=== PATIENT | female | born 1960 | race American Indian/Alaskan Native ===

== ENCOUNTER 2017-02-11 13:45 | Emergency (ER) | payer BC ==
[2017-02-11 14:05] VITALS: RESP 18; TEMP 98.4; O2SAT 97; BMI 27.1
--- NOTE | 2017-02-11 14:12 | ED PDOC ---
Arrival/HPI - General Time Seen by Provider: 02/11/17 13:56 Historian: Patient - History of Present Illness Narrative History of Present Illness (Text): 02/11/17 14:09 57yo female who present with complaint of lower back pain that radiates to her lower extremities after a trauma 2weeks ago. States she fell down 14stairs on her back. Came to ED today because of the persistent pain. Pain is constant, but worse with with movement after a prolong sitting. Did not take any medication for pain. Also reports suprapubic abdominal pain, urinary frequency and dysuria x 2weeks. States she saw her TEST BORER HELPER for the urinary symptoms and was given a cream, which she finished without relieve. Denies fever, chills, nausea , vomiting, focal weakness, saddle anesthesia, urinary/fecal incontinence. Past Medical History - Provider Review Nursing Documentation Reviewed: Yes - Past History Past History: Non-Contributing - Infectious Disease Hx of Infectious Diseases: None - Tetanus Immunization Tetanus Immunization: Unknown - Past Medical History Past Medical History: Non-Contributing - Cardiac Hx Cardiac Disorders: Yes Hx Hypertension: Yes - Pulmonary Hx Respiratory Disorders: No - Neurological Hx Neurological Disorder: No Hx Paralysis: No - HEENT Hx HEENT Disorder: No - Renal Hx Renal Disorder: No - Endocrine/Metabolic Hx Endocrine Disorders: No - Hematological/Oncological Hx Blood Disorders: No Hx Blood Transfusions: No Hx Blood Transfusion Reaction: No - Integumentary Hx Dermatological Disorder: No - Musculoskeletal/Rheumatological Hx Musculoskeletal Disorders: No - Gastrointestinal Hx Gastrointestinal Disorders: Yes Hx Constipation: Yes Hx Gastroesophageal Reflux: Yes - Genitourinary/Gynecological Hx Genitourinary Disorders: No - Psychiatric Hx Psychophysiologic Disorder: No Hx Substance Use: No - Past Surgical History Past Surgical History: Non-Contributing - Surgical History Hx Tubal Ligation: Yes - Anesthesia Hx Anesthesia: Yes Hx Anesthesia Reactions: No Hx Malignant Hyperthermia: No - Suicidal Assessment Feels Threatened In Home Enviroment: No Family/Social History - Physician Review Nursing Documentation Reviewed: Yes Family/Social History: Unknown Family HX Smoking Status: Never Smoked Hx Alcohol Use: No Hx Substance Use: No Hx Substance Use Treatment: No Allergies/Home Meds Allergies/Adverse Reactions: Allergies EGG Allergy (Verified 10/07/16 16:22) ITCHING peas Allergy (Verified 10/07/16 16:22) ITCHING Penicillins Allergy (Verified 10/07/16 16:22) ITCHING potato Allergy (Verified 10/07/16 16:22) ITCHING shellfish derived Allergy (Verified 10/07/16 16:22) ITCHING seafood Allergy (Uncoded 10/07/16 16:22) ITCHING Review of Systems - Physician Review All systems were reviewed & negative as marked: Yes - Review of Systems Constitutional: Normal Eyes: Normal ENT: Normal Respiratory: Normal Cardiovascular: Normal Gastrointestinal: Normal Genitourinary Female: Dysuria, Frequency Musculoskeletal: Back Pain Skin: Normal Neurological: Normal Endocrine: Normal Hemo/Lymphatic: Normal Psychiatric: Normal Physical Exam Vital Signs Reviewed: Yes Vital Signs Temp Pulse Resp BP Pulse Ox 02/11/17 15:22 78 18 138/68 97 02/11/17 14:05 98.4 F 81 18 142/71 97 Temperature: Afebrile Blood Pressure: Normal Pulse: Regular Respiratory Rate: Normal Appearance: Positive for: Well-Appearing, Non-Toxic, Comfortable Pain Distress: None Mental Status: Positive for: Alert and Oriented X 3 - Systems Exam Head: Present: Atraumatic, Normocephalic Pupils: Present: PERRL Extroacular Muscles: Present: EOMI Conjunctiva: Present: Normal Mouth: Present: Moist Mucous Membranes Neck: Present: Normal Range of Motion Respiratory/Chest: Present: Clear to Auscultation, Good Air Exchange. No: Respiratory Distress, Accessory Muscle Use Cardiovascular: Present: Regular Rate and Rhythm, Normal S1, S2. No: Murmurs Abdomen: Present: Tenderness (Suprapubic tenderness), Normal Bowel Sounds, Other (Soft). No: Distention, Peritoneal Signs, Rebound, Guarding, McBurney's Point Tender, Rovsing's Sign Present Back: Present: Midline Tenderness. No: Paraspinal Tenderness, Pain with Leg Raise Upper Extremity: Present: Normal Inspection. No: Cyanosis, Edema Lower Extremity: Present: Normal Inspection. No: Edema Neurological: Present: GCS=15, CN II-XII Intact, Speech Normal Skin: Present: Warm, Dry, Normal Color. No: Rashes Psychiatric: Present: Alert, Oriented x 3, Normal Insight, Normal Concentration Medical Decision Making ED Course and Treatment: 02/11/17 16:03 Pt was ambulatory and neurological intact in ED. Her pain improved on re evaluation. She have UTI and was treated with macrobid LS xray No acute finding. Arthorses of LS noted Result was DW the pt. she was referred to her PMD/TEST BORER HELPER. Rx of Naprosyn and macrobid given. Muscle relaxer not given at this time, as pt developed itching in ED after taking muscle relaxer. she is allergic to peas and it has correlation with muscle relaxer. - Lab Interpretations Lab Results: Lab Results 02/11/17 14:26: Urine Color Yellow, Urine Appearance Clear, Urine pH 6.5, Ur Specific [employer] 1.015, Urine Protein Negative, Urine Glucose (UA) Negative, Urine Ketones Negative, Urine Blood Negative, Urine Nitrate Negative, Urine Bilirubin Negative, Urine Urobilinogen 0.2, Ur Leukocyte Esterase Moderate H, Urine RBC Negative, Urine WBC 1 - 3, Ur Epithelial Cells Many, Urine Bacteria Small - RAD Interpretation Radiology Orders: 02/11/17 14:08 LS SPINE WITH OBL > 18 YRS OLD [RAD] Stat - Medication Orders Current Medication Orders: Discontinued Medications Diazepam (Valium) 5 mg PO ONCE ONE PRN Reason: Protocol Stop: 02/11/17 14:29 Last Admin: 02/11/17 14:44 Dose: 5 mg Diphenhydramine HCl (Benadryl) 25 mg PO STAT STA Stop: 02/11/17 15:41 Last Admin: 02/11/17 15:52 Dose: 25 mg Ketorolac Tromethamine (Toradol) 60 mg IM STAT STA Stop: 02/11/17 14:29 Last Admin: 02/11/17 14:46 Dose: 60 mg Nitrofurantoin Macrocrystals (Macrobid) 100 mg PO ONCE STA Stop: 02/11/17 14:43 Last Admin: 02/11/17 15:52 Dose: 100 mg Disposition/Present on Arrival - Present on Arrival Any Indicators Present on Arrival: No History of DVT/PE: No History of Uncontrolled Diabetes: No Urinary Catheter: No History Surgical Site Infection Following: None - Disposition Have Diagnosis and Disposition been Completed?: Yes Diagnosis: Back pain, UTI (urinary tract infection) Disposition: HOME/ ROUTINE Disposition Time: 15:35 Patient Plan: Discharge Patient Problems: Current Active Problems Problem Status Onset Back pain Acute UTI (urinary tract infection) Acute Condition: STABLE Discharge Instructions (ExitCare): Urinary Tract Infection in Women (ED), Back Pain (ED) Additional Instructions: Take medication as directed Follow up with your Doct0r/TEST BORER HELPER Return to ED for any new or worsening symptoms Prescriptions: Naproxen [Naprosyn] 500 mg PO BID #20 tablet Nitrofurantoin Macrocrystals [Macrobid] 100 mg PO BID #14 cap Referrals: Mark Serrano DO [Primary Care Provider] - Follow up with primary
[2017-02-11 14:29] LABS: PH,URINE 6.5 (4.7-8.0); URINE BILIRUBIN NEGATIVE (NEGATIVE); URINE BLOOD NEGATIVE (NEGATIVE); URINE GLUCOSE (UA) NEGATIVE (NEGATIVE); URINE KETONE NEGATIVE (NEGATIVE); URINE LEUKOCYTE ESTERASE MODERATE Leu/uL (NEGATIVE); URINE PROTEIN NEGATIVE mg/dL (<30 mg/dL); URINE UROBILINOGEN 0.2 E.U./dL (<1 E.U./dL)
[2017-02-11 14:32] LABS: URINE APPEARANCE CLEAR (CLEAR); URINE COLOR YELLOW (YELLOW)
[2017-02-11 14:43] LABS: URINE BACTERIA SMALL (NEG); URINE EPITHELIAL CELLS MANY /hpf (0-5); URINE RBC NEGATIVE /hpf (0-2)
[2017-02-11 15:22] VITALS: BP 138/68; PULSE 78
--- NOTE | 2017-02-11 15:29 | RAD ---
PROCEDURE: Radiographs of the Lumbar Spine. HISTORY: back pain s/p trauma COMPARISON: No prior. FINDINGS: BONES: Normal alignment. No listhesis. No fracture. DISC SPACES: Unremarkable. OTHER FINDINGS: L4-5 and L5-S1 facet hypertrophy arthrosis IMPRESSION: No fracture or gross subluxation suggested. Bilateral facet hypertrophic arthrosis
[2017-02-11] MEDS ORDERED: DiphenhydrAMINE 12.5 mg/5 ml LIQ UD (5 ml) PO STA (15:40)
== END 2017-02-11 16:05 | disposition home or self-care (01) ==
LOC: ED 13:45
DX: N39.0 Urinary tract infection, site not specified (principal); M54.5 Low back pain
CPT/HCPCS: 72110; 81001; 96372; 99283; J1885

== ENCOUNTER 2017-02-18 12:56 | Emergency (ER) | payer BC ==
[2017-02-18 12:57] VITALS: BMI 27.1
[2017-02-18 14:02] LABS: URINE BILIRUBIN NEGATIVE (NEGATIVE); URINE BLOOD NEGATIVE (NEGATIVE); URINE GLUCOSE (UA) NEGATIVE (NEGATIVE); URINE LEUKOCYTE ESTERASE SMALL Leu/uL (NEGATIVE); URINE NITRATE NEGATIVE (NEGATIVE); URINE PROTEIN NEGATIVE mg/dL (<30 mg/dL); URINE UROBILINOGEN 0.2 E.U./dL (<1 E.U./dL)
[2017-02-18 14:07] LABS: URINE APPEARANCE SL CLOUDY (CLEAR); URINE COLOR YELLOW (YELLOW)
[2017-02-18 14:10] LABS: URINE BACTERIA FEW (NEG); URINE RBC 0 - 2 /hpf (0-2)
--- NOTE | 2017-02-18 14:15 | ED PDOC ---
Arrival/HPI - General Historian: Patient - History of Present Illness Time/Duration: < week Symptom Course: Improving - General Chief Complaint: Female Genitourinary Time Seen by Provider: 02/18/17 13:25 - History of Present Illness Narrative History of Present Illness (Text): 02/18/17 13:54 57 year old female with past medical history of hypertension presents to [facility] ED complaining of abdominal pain. The pain is located at bilateral lower abdominal region. She reports the pain started 4 days ago, non radiating, tightness in quality. The pain is intermittent, it is worse with palpation and improves with naproxen. Patient was here in the ED 1 week ago for the similar abdominal pain and dysuria. Patient was discharged with naproxen and macrobid. She is finishing up her 5 day course of macrobid today and denies having any urinary symptoms. Patient reports to feel constipated last week, but her bowel movement was been normal, last BM was this morning and it was normal. Patient denies having fever, chills, shortness of breath, nausea, vomiting, or diarrhea. (Carrie Botello) Past Medical History - Provider Review Nursing Documentation Reviewed: Yes - Past History Past History: Non-Contributing - Infectious Disease Hx of Infectious Diseases: None - Tetanus Immunization Tetanus Immunization: Unknown - Past Medical History Past Medical History: Non-Contributing - Cardiac Hx Cardiac Disorders: Yes Hx Hypertension: Yes - Pulmonary Hx Respiratory Disorders: No - Neurological Hx Neurological Disorder: No Hx Paralysis: No - HEENT Hx HEENT Disorder: No - Renal Hx Renal Disorder: No - Endocrine/Metabolic Hx Endocrine Disorders: No - Hematological/Oncological Hx Blood Disorders: No Hx Blood Transfusions: No Hx Blood Transfusion Reaction: No - Integumentary Hx Dermatological Disorder: No - Musculoskeletal/Rheumatological Hx Musculoskeletal Disorders: No - Gastrointestinal Hx Gastrointestinal Disorders: Yes Hx Constipation: Yes Hx Gastroesophageal Reflux: Yes - Genitourinary/Gynecological Hx Genitourinary Disorders: No - Psychiatric Hx Psychophysiologic Disorder: No Hx Substance Use: No - Past Surgical History Past Surgical History: Non-Contributing - Surgical History Hx Tubal Ligation: Yes - Anesthesia Hx Anesthesia: Yes Hx Anesthesia Reactions: No Hx Malignant Hyperthermia: No - Suicidal Assessment Feels Threatened In Home Enviroment: No Family/Social History - Physician Review Nursing Documentation Reviewed: Yes Family/Social History: Unknown Family HX Smoking Status: Never Smoked Hx Alcohol Use: No Hx Substance Use: No Hx Substance Use Treatment: No Allergies/Home Meds Allergies/Adverse Reactions: Allergies EGG Allergy (Verified 02/18/17 13:23) ITCHING peas Allergy (Verified 02/18/17 13:23) ITCHING Penicillins Allergy (Verified 02/18/17 13:23) ITCHING potato Allergy (Verified 02/18/17 13:23) ITCHING shellfish derived Allergy (Verified 02/18/17 13:23) ITCHING seafood Allergy (Uncoded 02/18/17 13:23) ITCHING Review of Systems - Physician Review All systems were reviewed & negative as marked: Yes - Review of Systems Constitutional: Normal. absent: Fatigue, Weight Change, Fevers Eyes: Normal. absent: Vision Changes, Photophobia ENT: Normal. absent: Hearing Changes Respiratory: Normal. absent: SOB, Cough Cardiovascular: Normal. absent: Chest Pain, Palpitations, Syncope Gastrointestinal: Abdominal Pain, Constipation. absent: Stool Changes, Diarrhea , Nausea, Vomiting Genitourinary Female: Normal. absent: Dysuria, Frequency, Hematuria Musculoskeletal: Normal Skin: Normal. absent: Rash, Pruritis Neurological: Normal. absent: Headache, Dizziness, Focal Weakness, Speech Changes Endocrine: Normal. absent: Diaphoresis, Polyuria Hemo/Lymphatic: Normal Psychiatric: absent: Normal, Anxiety, Depression Physical Exam Vital Signs Reviewed: Yes Temperature: Afebrile Blood Pressure: Hypertensive Pulse: Regular Respiratory Rate: Normal Appearance: Positive for: Well-Appearing, Non-Toxic, Comfortable Pain Distress: Mild (only on palpation) Mental Status: Positive for: Alert and Oriented X 3 - Systems Exam Head: Present: Atraumatic, Normocephalic Pupils: Present: PERRL Extroacular Muscles: Present: EOMI Conjunctiva: Present: Normal Mouth: Present: Moist Mucous Membranes Neck: Present: Normal Range of Motion Respiratory/Chest: Present: Clear to Auscultation, Good Air Exchange. No: Respiratory Distress, Accessory Muscle Use Cardiovascular: Present: Regular Rate and Rhythm, Normal S1, S2. No: Murmurs Abdomen: Present: Tenderness (bilateral lower abdominal tenerdness, no signs of trauma appreciated), Normal Bowel Sounds. No: Distention, Hernias Back: Present: Normal Inspection Upper Extremity: Present: Normal Inspection, NORMAL PULSES, Neurovascularly Intact. No: Cyanosis, Edema Lower Extremity: Present: Normal Inspection, NORMAL PULSES, Neurovascularly Intact. No: Edema Neurological: Present: GCS=15, CN II-XII Intact, Speech Normal Skin: Present: Warm, Dry, Normal Color. No: Rashes Psychiatric: Present: Alert, Oriented x 3, Normal Insight, Normal Concentration Medical Decision Making ED Course and Treatment: 02/18/17 14:30 -UA -CBC, CMP -CT abdomen -Reassess and disposition DDx: muscle strain, constipation, UTI 02/18/17 16:45 Progress note: Blood work unremarkable. Patient's symptoms improved, resting in bed comfortably. 57 year female with past medical history of hypertension presents with bilateral lower abdominal/flank pain. Blood work and CT abdomen performed without acute findings. Patient's pain improved. Instructed patient to take over the counter ibuprofen for pain as needed. Also recommended patient to take over the counter cranberry tablets if UTI symptoms return. (Carrie Botello) Seen and examined with resident. 57 year old F p/w bilateral flank pain x 4 days. Tender diffusely on exam. (Christiano Hawkins) - Lab Interpretations Lab Results: 02/18/17 14:35 02/18/17 15:30 Lab Results 02/18/17 15:30: Sodium 140, Potassium 3.9, Chloride 106, Carbon Dioxide 26, Anion Gap 12, BUN 12, Creatinine 0.8, Est GFR ( Amer) > 60, Est GFR (Non- Af Amer) > 60, Random Glucose 70, Calcium 9.3, Total Bilirubin 0.7, AST 26, ALT 33, Alkaline Phosphatase 89, Total Protein 7.7, Albumin 4.3, Globulin 3.4, Albumin/Globulin Ratio 1.3 02/18/17 14:35: WBC 5.5, RBC 3.75, Hgb 12.2, Hct 35.5 L, MCV 94.7, MCH 32.5, MCHC 34.4, RDW 12.9, Plt Count 255, MPV 9.4, Gran % 58.9, Lymph % (Auto) 31.6, [place] % (Auto) 6.4 H, Eos % (Auto) 2.9, Baso % (Auto) 0.2, Gran # 3.21, Lymph # 1.7, [place] # 0.4, Eos # 0.2, Baso # 0.01 02/18/17 13:50: Urine Color Yellow, Urine Appearance Sl cloudy, Urine pH 6.0, Ur Specific [place] 1.025, Urine Protein Negative, Urine Glucose (UA) Negative, Urine Ketones Negative, Urine Blood Negative, Urine Nitrate Negative, Urine Bilirubin Negative, Urine Urobilinogen 0.2, Ur Leukocyte Esterase Small H, Urine RBC 0 - 2, Urine WBC 2 - 5, Ur Epithelial Cells 3 - 4, Urine Bacteria Few - RAD Interpretation Narrative RAD Interpretations (Text): 02/18/17 16:53 PROCEDURE: CT Abdomen and Pelvis with contrast HISTORY: Bilateral abdominal, flank pain. COMPARISON: 01/11/2013 TECHNIQUE: Contrast dose: 100 cc Omnipaque 350. Radiation dose: Total exam DLP = 534.99 mGy-cm. This CT exam was performed using one or more of the following dose reduction techniques: Automated exposure control, adjustment of the mA and/or kV according to patient size, and/or use of iterative reconstruction technique. FINDINGS: LOWER THORAX: Unremarkable. LIVER: Hepatic steatosis. No focal masses. No intrahepatic bile duct dilatation or perihepatic ascites. GALLBLADDER AND BILE DUCTS: Unremarkable. PANCREAS: Unremarkable. No gross lesion or ductal dilatation. SPLEEN: Unremarkable. ADRENALS: Unremarkable. No mass. KIDNEYS AND URETERS: No evidence of hydronephrosis, hydroureter. Cortical aorta calcification appears adjacent to the mid right ureter. VASCULATURE: Unremarkable. No aortic aneurysm. BOWEL: Unremarkable. No obstruction. No gross mural thickening. APPENDIX: Normal appendix. PERITONEUM: Unremarkable. No free fluid. No free air. LYMPH NODES: Unremarkable. No enlarged lymph nodes. BLADDER: Unremarkable. REPRODUCTIVE: Unremarkable. BONES: No acute fracture. OTHER FINDINGS: None. IMPRESSION: No acute findings related to/accounting for the clinical presentation. Sleep bowel westley the colo without (Carrie Botello) Radiology Orders: 02/18/17 14:20 ABD & PELVIS IV CONTRAST ONLY [CT] Stat - Medication Orders Current Medication Orders: Discontinued Medications Iohexol (Omnipaque 350 100 Ml) Confirm Administered Dose 350 mg .ROUTE .STK-MED ONE Stop: 02/18/17 16:12 - PA / INTERNAL MEDICINE NURSE PRACTITIONER / Resident Statement / has reviewed & agrees with the documentation as recorded. / has examined the patient and agrees with the treatment plan. Disposition/Present on Arrival - Present on Arrival Any Indicators Present on Arrival: No History of DVT/PE: No History of Uncontrolled Diabetes: No Urinary Catheter: No History of Decub. Ulcer: No History Surgical Site Infection Following: None - Disposition Have Diagnosis and Disposition been Completed?: Yes Disposition Time: 16:50 Patient Plan: Discharge - Disposition Diagnosis: Abdominal pain Disposition: HOME/ ROUTINE Condition: IMPROVED Discharge Instructions (ExitCare): Abdominal Pain (ED) Additional Instructions: Ninoska Barry, thank you for letting us take care of you today. Your provider was Dr. Hawkins. You were treated for abdominal pain. The emergency medical care you received today was directed at your acute symptoms. If you were prescribed any medication, please fill it and take as directed. It may take several days for your symptoms to resolve. Return to the Emergency Department if your symptoms worsen, do not improve, or if you have any other problems. Please contact your doctor or call one of the physicians/clinics you have been referred to that are listed on the Patient Visit Information form that is included in your discharge packet. Bring any paperwork you were given at discharge with you along with any medications you are taking to your follow up visit. Our treatment cannot replace ongoing medical care by a primary care provider (PCP) outside of the emergency department. Thank you for allowing the [facility] [employer] team to be part of your care today. Referrals: Mark Serrano, DO [Primary Care Provider] - Follow up with primary
[2017-02-18 14:50] LABS: BASO # 0.01 K/mm3 (0.0-2.0); BASO % 0.2 % (0.0-3.0); EOS # 0.2 (0.0-0.7); EOS % 2.9 % (1.5-5.0); GRAN # 3.21 (1.4-6.5); GRAN % 58.9 % (50.0-68.0); HEMOGLOBIN 12.2 gm/dL (12.0-16.0); LYMPH # 1.7 (1.2-3.4); LYMPH % 31.6 % (22.0-35.0); MEAN CELL VOLUME 94.7 fL (80.0-105.0); MEAN CORPUSCULAR HEMOGLOBIN 32.5 pg (25.0-35.0); MEAN CORPUSCULAR HGB CONC 34.4 g/dl (31.0-37.0); MEAN PLATELET VOLUME 9.4 fl (7.0-11.0); MONO # 0.4 (0.1-0.6); MONO % 6.4 % (1.0-6.0); PLATELET COUNT 255 10^3/uL (120.0-450.0); RBC 3.75 10^6/uL (3.5-6.1); RED CELL DISTRIBUTION WIDTH 12.9 % (11.5-14.5); WHITE BLOOD COUNT 5.5 10^3/ul (4.5-11.0)
[2017-02-18 15:51] LABS: ALB/GLOB RATIO 1.3 (1.1-1.8); ALBUMIN 4.3 g/dL (3.0-4.8); ALT/SGPT 33 U/L (7-56); AST/SGOT 26 U/L (15-39); BLOOD UREA NITROGEN 12 mg/dL (7-21); GFR AFRICAN-AMERICAN > 60; GFR NON-AFRICAN AMERICAN > 60
[2017-02-18 15:53] LABS: CALCIUM 9.3 mg/dL (8.4-10.5)
[2017-02-18] MEDS ORDERED: Iohexol 350 MG/100 ML VIAL ONE (16:11)
--- NOTE | 2017-02-18 16:50 | CT ---
PROCEDURE: CT Abdomen and Pelvis with contrast HISTORY: Bilateral abdominal, flank pain. COMPARISON: 01/11/2013 TECHNIQUE: Contrast dose: 100 cc Omnipaque 350. Radiation dose: Total exam DLP = 534.99 mGy-cm. This CT exam was performed using one or more of the following dose reduction techniques: Automated exposure control, adjustment of the mA and/or kV according to patient size, and/or use of iterative reconstruction technique. FINDINGS: LOWER THORAX: Unremarkable. LIVER: Hepatic steatosis. No focal masses. No intrahepatic bile duct dilatation or perihepatic ascites. GALLBLADDER AND BILE DUCTS: Unremarkable. PANCREAS: Unremarkable. No gross lesion or ductal dilatation. SPLEEN: Unremarkable. ADRENALS: Unremarkable. No mass. KIDNEYS AND URETERS: No evidence of hydronephrosis, hydroureter. Cortical aorta calcification appears adjacent to the mid right ureter. VASCULATURE: Unremarkable. No aortic aneurysm. BOWEL: Unremarkable. No obstruction. No gross mural thickening. APPENDIX: Normal appendix. PERITONEUM: Unremarkable. No free fluid. No free air. LYMPH NODES: Unremarkable. No enlarged lymph nodes. BLADDER: Unremarkable. REPRODUCTIVE: Unremarkable. BONES: No acute fracture. OTHER FINDINGS: None. IMPRESSION: No acute findings related to/accounting for the clinical presentation. Sleep bowel westley the colo without
[2017-02-18 17:20] VITALS: BP 126/78; PULSE 72; RESP 16; TEMP 98.7; O2SAT 99
== END 2017-02-18 17:20 | disposition home or self-care (01) ==
LOC: ED 12:56
DX: R10.9 Unspecified abdominal pain (principal); I10 Essential (primary) hypertension; K21.9 Gastro-esophageal reflux disease without esophagitis
CPT/HCPCS: 74177; 80053; 81001; 85025; 87086; 99283; Q9967

== ENCOUNTER 2018-03-21 20:01 | Emergency (ER) | payer SELFPAY ==
[2018-03-21 20:01] VITALS: BMI 27.1
[2018-03-21 20:07] VITALS: BP 162/92; PULSE 118; RESP 17; TEMP 98.6; O2SAT 97
--- NOTE | 2018-03-21 20:24 | ED PDOC ---
Arrival/HPI - General Chief Complaint: Abnormal Skin Integrity Time Seen by Provider: 03/21/18 20:12 - History of Present Illness Narrative History of Present Illness (Text): 03/21/18 20:21 58 yo female, no prior hx, presetns with "itchy skin x 5day". pt reports numerous allergies, unsure of provoking cause. seen in er similarly previosly. took benadryl which allerviate symtpoms. no rash. requests medication and immediate dc home without reassessment in emergency room Past Medical History - Past History Past History: Non-Contributing - Infectious Disease Hx of Infectious Diseases: None - Tetanus Immunization Tetanus Immunization: Unknown - Past Medical History Past Medical History: Non-Contributing - Cardiac Hx Cardiac Disorders: Yes Hx Hypertension: Yes - Pulmonary Hx Respiratory Disorders: No - Neurological Hx Neurological Disorder: No - HEENT Hx HEENT Disorder: No - Renal Hx Renal Disorder: No - Endocrine/Metabolic Hx Endocrine Disorders: No - Hematological/Oncological Hx Blood Disorders: No - Integumentary Hx Dermatological Disorder: No - Musculoskeletal/Rheumatological Hx Musculoskeletal Disorders: No - Gastrointestinal Hx Gastrointestinal Disorders: Yes Hx Constipation: Yes Hx Gastroesophageal Reflux: Yes - Genitourinary/Gynecological Hx Genitourinary Disorders: Yes Hx Urinary Tract Infection: Yes - Psychiatric Hx Psychophysiologic Disorder: No Hx Substance Use: No - Past Surgical History Past Surgical History: Non-Contributing - Surgical History Hx Tubal Ligation: Yes - Anesthesia Hx Anesthesia: Yes Hx Anesthesia Reactions: No Hx Malignant Hyperthermia: No - Suicidal Assessment Feels Threatened In Home Enviroment: No Family/Social History Family/Social History: Unknown Family HX Smoking Status: Never Smoked Hx Alcohol Use: No Hx Substance Use: No Hx Substance Use Treatment: No Allergies/Home Meds Allergies/Adverse Reactions: Allergies EGG Allergy (Verified 03/21/18 20:03) ITCHING peas Allergy (Verified 03/21/18 20:03) ITCHING Penicillins Allergy (Verified 03/21/18 20:03) ITCHING potato Allergy (Verified 03/21/18 20:03) ITCHING shellfish derived Allergy (Verified 03/21/18 20:03) ITCHING seafood Allergy (Uncoded 03/21/18 20:03) ITCHING Review of Systems - Review of Systems Skin: Pruritis Physical Exam Vital Signs Temp Pulse Resp BP Pulse Ox 08/05/18 20:03 98.6 F 118 H 17 162/92 H 97 Temperature: Afebrile Blood Pressure: Normal Pulse: Tachycardic Respiratory Rate: Normal Appearance: Positive for: Well-Appearing, Non-Toxic, Comfortable, Other (on phone smiling textin in nad) Pain Distress: None Mental Status: Positive for: Alert and Oriented X 3 - Systems Exam Head: Present: Atraumatic, Normocephalic Pupils: Present: PERRL Extroacular Muscles: Present: EOMI Conjunctiva: Present: Normal Mouth: Present: Moist Mucous Membranes Neck: Present: Normal Range of Motion Respiratory/Chest: Present: Clear to Auscultation, Good Air Exchange. No: Respiratory Distress, Accessory Muscle Use Cardiovascular: Present: Regular Rate and Rhythm, Normal S1, S2. No: Murmurs Abdomen: No: Tenderness, Distention, Peritoneal Signs, Rebound, Guarding Back: Present: Normal Inspection Upper Extremity: Present: Normal Inspection. No: Cyanosis, Edema Lower Extremity: Present: Normal Inspection. No: Edema Neurological: Present: GCS=15, CN II-XII Intact, Speech Normal Skin: Present: Warm, Dry, Normal Color. No: Rashes Psychiatric: Present: Alert, Oriented x 3, Normal Insight, Normal Concentration Medical Decision Making ED Course and Treatment: 03/21/18 20:23 request meds and immediate dc . outpt fu. - Medication Orders Current Medication Orders: Discontinued Medications Diphenhydramine HCl (Benadryl) 50 mg PO STAT STA Stop: 03/21/18 20:19 Famotidine (Pepcid) 20 mg PO STAT STA Stop: 03/21/18 20:19 Prednisone (Prednisone Tab) 50 mg PO STAT STA Stop: 03/21/18 20:19 Disposition/Present on Arrival - Present on Arrival Any Indicators Present on Arrival: No History of DVT/PE: No History of Uncontrolled Diabetes: No Urinary Catheter: No History of Decub. Ulcer: No History Surgical Site Infection Following: None - Disposition Have Diagnosis and Disposition been Completed?: Yes Diagnosis: Itching Disposition: HOME/ ROUTINE Disposition Time: 08:00 Condition: STABLE Discharge Instructions (ExitCare): Itchy Skin Additional Instructions: please follow up with your doctor. you may need further testing as an outpatient. return to er with worsening symptoms or concerns. Prescriptions: DiphenhydrAMINE [Benadryl] 25 mg PO Q4 PRN #20 cap PRN Reason: Itching / Pruritus Famotidine [Pepcid] 20 mg PO DAILY #5 tab Prednisone 50 mg PO DAILY #4 tablet Referrals: [facility] [Outside] - Follow up with primary [facility] [Outside] - Follow up with primary [facility] [Outside] - Follow up with primary Forms: [employer] (Welsh)
== END 2018-03-21 20:28 | disposition home or self-care (01) ==
LOC: ED 20:01
DX: L29.9 Pruritus, unspecified (principal); I10 Essential (primary) hypertension

== ENCOUNTER 2018-11-16 03:43 | Emergency (ER) | payer MEDICAID, OTHER ==
[2018-11-16 03:44] VITALS: BMI 27.1
[2018-11-16 04:04] VITALS: BP 187/97; PULSE 80; RESP 18; TEMP 97.5; O2SAT 96
[2018-11-16] MEDS ORDERED: DiphenhydrAMINE 50 mg/ml Inj IM STA (04:15)
--- NOTE | 2018-11-16 04:22 | ED PDOC ---
Arrival/HPI - General Chief Complaint: Headache Time Seen by Provider: 11/16/18 04:06 Historian: Patient - History of Present Illness Narrative History of Present Illness (Text): 11/16/18 04:31 58 year old female, whose past medical history includes allergies, presents to the emergency department with itchy skin. Patient informs she has had symptoms for multiple days. Patient also informs of a sinus headache. Patient states she feels as though she has a sinus infection. Patient denies any fever, chills, shortness of breath, chest pain, difficulty swallowing, nausea, vomiting, or any other complaints. Time/Duration: Prior to Arrival Symptom Onset: Gradual Symptom Course: Unchanged Quality: Other Activities at Onset: Light Context: Home Past Medical History - Provider Review Nursing Documentation Reviewed: Yes - Travel History If Yes, travel location?: the [facility] - Past History Past History: Non-Contributing - Infectious Disease Hx of Infectious Diseases: None - Tetanus Immunization Tetanus Immunization: Unknown - Past Medical History Past Medical History: Non-Contributing - Cardiac Hx Cardiac Disorders: Yes Hx Hypertension: Yes - Pulmonary Hx Respiratory Disorders: No - Neurological Hx Neurological Disorder: No - HEENT Hx HEENT Disorder: No - Renal Hx Renal Disorder: No - Endocrine/Metabolic Hx Endocrine Disorders: No - Hematological/Oncological Hx Blood Disorders: No - Integumentary Hx Dermatological Disorder: No - Musculoskeletal/Rheumatological Hx Musculoskeletal Disorders: No - Gastrointestinal Hx Gastrointestinal Disorders: Yes Hx Constipation: Yes Hx Gastroesophageal Reflux: Yes - Genitourinary/Gynecological Hx Genitourinary Disorders: Yes Hx Urinary Tract Infection: Yes - Psychiatric Hx Psychophysiologic Disorder: No Hx Substance Use: No - Past Surgical History Past Surgical History: Non-Contributing - Surgical History Hx Tubal Ligation: Yes - Anesthesia Hx Anesthesia: Yes Hx Anesthesia Reactions: No Hx Malignant Hyperthermia: No - Suicidal Assessment Feels Threatened In Home Enviroment: No Family/Social History - Physician Review Nursing Documentation Reviewed: Yes Family/Social History: No Known Family HX Smoking Status: Never Smoked Hx Alcohol Use: No Hx Substance Use: No Hx Substance Use Treatment: No Allergies/Home Meds Allergies/Adverse Reactions: Allergies EGG Allergy (Verified 11/16/18 04:05) ITCHING peas Allergy (Verified 11/16/18 04:05) ITCHING Penicillins Allergy (Verified 11/16/18 04:05) ITCHING potato Allergy (Verified 11/16/18 04:05) ITCHING shellfish derived Allergy (Verified 11/16/18 04:05) ITCHING seafood Allergy (Uncoded 11/16/18 04:05) ITCHING Review of Systems - Review of Systems Constitutional: absent: Fevers, Night Sweats Respiratory: absent: SOB Cardiovascular: absent: Chest Pain Gastrointestinal: absent: Nausea, Vomiting Skin: Rash Neurological: Headache Physical Exam Vital Signs Reviewed: Yes Vital Signs Temp Pulse Resp BP Pulse Ox 11/16/18 04:01 97.5 F L 80 18 187/97 H 96 Temperature: Afebrile Blood Pressure: Hypertensive Pulse: Regular Respiratory Rate: Normal Appearance: Positive for: Well-Appearing, Non-Toxic, Comfortable Pain Distress: None Mental Status: Positive for: Alert and Oriented X 3 - Systems Exam Head: Present: Atraumatic, Normocephalic, Tenderness (to frontal sinuses) Pupils: Present: PERRL Extroacular Muscles: Present: EOMI Conjunctiva: Present: Normal Mouth: Present: Moist Mucous Membranes Neck: Present: Normal Range of Motion Respiratory/Chest: Present: Clear to Auscultation, Good Air Exchange. No: Respiratory Distress, Accessory Muscle Use Cardiovascular: Present: Regular Rate and Rhythm, Normal S1, S2. No: Murmurs Abdomen: No: Tenderness, Distention, Peritoneal Signs Back: Present: Normal Inspection Upper Extremity: Present: Normal Inspection. No: Cyanosis, Edema Lower Extremity: Present: Normal Inspection. No: Edema Neurological: Present: GCS=15, CN II-XII Intact, Speech Normal Skin: Present: Warm, Dry, Rashes (few scattered papular urticarial areas to the arms), Normal Color Psychiatric: Present: Alert, Oriented x 3, Normal Insight, Normal Concentration Medical Decision Making ED Course and Treatment: 11/16/18 04:37 Impression: 58 year old female presents with allergy and headache. Plan: -- Benadryl -- Prednisone -- Tylenol -- Zithromax -- Reassess and disposition Prior Visits: Notes and results from previous visits were reviewed. Progress Notes: - Medication Orders Current Medication Orders: Discontinued Medications Azithromycin (Zithromax) 500 mg PO ONCE STA; Protocol Stop: 11/16/18 04:16 Diphenhydramine HCl (Benadryl) 50 mg IM ONCE STA Stop: 11/16/18 04:16 Prednisone (Prednisone Tab) 40 mg PO ONCE STA Stop: 11/16/18 04:16 - Scribe Statement The provider has reviewed the documentation as recorded by the Lisa Sanabria Provider Franciscoibzehra Attestation: All medical record entries made by the Scribe were at my direction and personally dictated by me. I have reviewed the chart and agree that the record accurately reflects my personal performance of the history, physical exam, medical decision making, and the department course for this patient. I have also personally directed, reviewed, and agree with the discharge instructions and disposition. Disposition/Present on Arrival - Present on Arrival Any Indicators Present on Arrival: No History of DVT/PE: No History of Uncontrolled Diabetes: No Urinary Catheter: No History of Decub. Ulcer: No History Surgical Site Infection Following: None - Disposition Have Diagnosis and Disposition been Completed?: Yes Diagnosis: Allergic reaction, Sinusitis, Headache Disposition: HOME/ ROUTINE Disposition Time: 04:23 Patient Plan: Discharge Patient Problems: Current Active Problems Problem Status Onset Allergic reaction Acute Headache Acute Sinusitis Acute Condition: GOOD Discharge Instructions (ExitCare): Sinusitis, Adult (DC), Sinus Headache (DC) Additional Instructions: take meds as prescribed/follow up with your doctor this week Prescriptions: DiphenhydrAMINE [Benadryl] 50 mg PO Q6 PRN #24 cap PRN Reason: Itching / Pruritus Acetaminophen/Butalbital/Caf [Fioricet] 1 tab PO Q6 PRN #14 tab PRN Reason: Headache predniSONE [Prednisone] 40 mg PO DAILY #10 tab Azithromycin [Zithromax] 250 mg PO DAILY #4 tab Forms: [employer] (Divehi)
== END 2018-11-16 04:50 | disposition home or self-care (01) ==
LOC: ED 03:43
DX: T78.40XA Allergy, unspecified, initial encounter (principal); X58.XXXA Exposure to other specified factors, initial encounter; R51 Headache; J32.9 Chronic sinusitis, unspecified; I10 Essential (primary) hypertension
CPT/HCPCS: 96372; 99285; J1200

== ENCOUNTER 2018-12-29 02:50 | Emergency (ER) | payer OTHER ==
--- NOTE | 2018-12-29 03:20 | ED PDOC ---
Arrival/HPI - General Chief Complaint: Headache Time Seen by Provider: 12/29/18 02:56 Historian: Patient - History of Present Illness Narrative History of Present Illness (Text): 12/29/18 03:17 Ninoska Barry is a 58 year old female, whose past medical history includes hypertension, who presents to the ED complaining of headache. Patient states she has been experiencing a right-sided headache, described as pressure, with associated dizziness. Patient notes she has not been compliant with her Lisinopril and Diovan for a few months because she is allergic and develops itching. On arrival, patient's blood pressure is 197/118. Patient also complaining of diffuse body itching tonight, notes she took Benadryl at home with no significant relief. Patient denies any fever, chills, chest pain, shortness of breath, nausea, vomiting, diarrhea, urinary symptoms, back pain, neck pain, or any other complaints. Symptom Onset: Gradual Symptom Course: Unchanged Activities at Onset: Light Context: Home Past Medical History - Provider Review Nursing Documentation Reviewed: Yes - Past History Past History: Non-Contributing - Infectious Disease Hx of Infectious Diseases: None - Tetanus Immunization Tetanus Immunization: Unknown - Reproductive Menopause: Yes - Past Medical History Past Medical History: Non-Contributing - Cardiac Hx Cardiac Disorders: Yes Hx Hypertension: Yes - Pulmonary Hx Respiratory Disorders: No - Neurological Hx Neurological Disorder: No - HEENT Hx HEENT Disorder: No - Renal Hx Renal Disorder: No - Endocrine/Metabolic Hx Endocrine Disorders: No - Hematological/Oncological Hx Blood Disorders: No - Integumentary Hx Dermatological Disorder: No - Musculoskeletal/Rheumatological Hx Musculoskeletal Disorders: No - Gastrointestinal Hx Gastrointestinal Disorders: Yes Hx Constipation: Yes Hx Gastroesophageal Reflux: Yes - Genitourinary/Gynecological Hx Genitourinary Disorders: Yes Hx Urinary Tract Infection: Yes - Psychiatric Hx Psychophysiologic Disorder: No Hx Substance Use: No - Past Surgical History Past Surgical History: Non-Contributing - Surgical History Hx Tubal Ligation: Yes - Anesthesia Hx Anesthesia: Yes Hx Anesthesia Reactions: No Hx Malignant Hyperthermia: No - Suicidal Assessment Feels Threatened In Home Enviroment: No Family/Social History - Physician Review Nursing Documentation Reviewed: Yes Family/Social History: Unknown Family HX Smoking Status: Never Smoked Hx Alcohol Use: No Hx Substance Use: No Hx Substance Use Treatment: No Allergies/Home Meds Allergies/Adverse Reactions: Allergies EGG Allergy (Verified 12/29/18 03:10) ITCHING lisinopril Allergy (Verified 12/29/18 03:11) ITCHING peas Allergy (Verified 12/29/18 03:10) ITCHING Penicillins Allergy (Verified 12/29/18 03:10) ITCHING potato Allergy (Verified 12/29/18 03:10) ITCHING shellfish derived Allergy (Verified 12/29/18 03:10) ITCHING eggplant Allergy (Uncoded 12/29/18 03:11) ITCHING seafood Allergy (Uncoded 12/29/18 03:10) ITCHING Review of Systems - Physician Review All systems were reviewed & negative as marked: Yes - Review of Systems Constitutional: Normal. absent: Fevers Eyes: Normal ENT: Normal Respiratory: Normal. absent: SOB, Cough Cardiovascular: Other (+high blood pressure). absent: Chest Pain Gastrointestinal: Normal. absent: Abdominal Pain, Diarrhea, Nausea, Vomiting Genitourinary Female: Normal. absent: Dysuria, Frequency, Hematuria, Urine Output Changes Musculoskeletal: Normal. absent: Back Pain, Neck Pain Skin: Pruritis Neurological: Headache, Dizziness Endocrine: Normal Hemo/Lymphatic: Normal Psychiatric: Normal Physical Exam Vital Signs Reviewed: Yes Vital Signs Temp Pulse Resp BP Pulse Ox 12/29/18 03:03 97.7 F 87 18 197/118 H 96 Temperature: Afebrile Blood Pressure: Hypertensive Pulse: Regular Respiratory Rate: Normal Appearance: Positive for: Well-Appearing, Non-Toxic, Comfortable Pain Distress: None Mental Status: Positive for: Alert and Oriented X 3 - Systems Exam Head: Present: Atraumatic, Normocephalic Pupils: Present: PERRL Extroacular Muscles: Present: EOMI Conjunctiva: Present: Normal Mouth: Present: Moist Mucous Membranes Neck: Present: Normal Range of Motion. No: Meningeal Signs, MIDLINE TENDERNESS, Paraspinal Tenderness Respiratory/Chest: Present: Clear to Auscultation, Good Air Exchange. No: Respiratory Distress, Accessory Muscle Use Cardiovascular: Present: Regular Rate and Rhythm, Normal S1, S2. No: Murmurs Abdomen: No: Tenderness, Distention, Peritoneal Signs Back: Present: Normal Inspection Upper Extremity: Present: Normal Inspection. No: Cyanosis, Edema Lower Extremity: Present: Normal Inspection. No: Edema Neurological: Present: GCS=15, CN II-XII Intact, Speech Normal Skin: Present: Warm, Dry, Normal Color. No: Rashes Psychiatric: Present: Alert, Oriented x 3, Normal Insight, Normal Concentration Medical Decision Making ED Course and Treatment: 12/29/18 03:17 Impression: 58 year old female complaining of high blood pressure and diffuse body pruritus. Plan: -- CT Head w/o contrast -- Labs, troponin -- Apresoline -- Benadryl -- Reglan -- Reassess and disposition Prior Visits: Notes and results from previous visits were reviewed. Progress Notes: 12/29/18 05:39 CT Head: Left occipital 3.5 cm benign osteoma arising from the outer plate of the occipital bone. No secondary erosion or impingement on the adjacent neural structures. There is normal configuration of sella turcica. There are no intra or extra- axial collections. There is no mass effect or midline shift. There is no evidence of hematoma formation. No hydrocephalus is present. The ventricles are symmetrical. No abnormal calcifications are present. There is diffuse age-appropriate cerebellar and cerebral atrophy with proportionally dilated ventricles and cortical sulci. There are bilateral periventricular and subcortical white matter hypolucencies compatible with mild chronic microvascular disease. Otherwise, no significant focal abnormalities are seen either in the posterior fossa or supratentorial compartment. IMPRESSION: 1. Age-appropriate cerebellar and cerebral atrophy. 2. Mild chronic microvascular disease. 3. No evidence of acute intracranial pathology. 4. 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 No secondary erosion or impingement on the adjacent neural structures. Electronically signed on December 29, 2018 4:46:28 AM EDT by: Leodan Scott M.D., Certified by SONIDO, MSK, Neuroradiology - RAD Interpretation Chief Environmental Commitment Officer: Radiologist - Scribe Statement The provider has reviewed the documentation as recorded by the Franciscoibzehra Dow Provider Scribe Attestation: All medical record entries made by the Scribe were at my direction and personally dictated by me. I have reviewed the chart and agree that the record accurately reflects my personal performance of the history, physical exam, medical decision making, and the department course for this patient. I have also personally directed, reviewed, and agree with the discharge instructions and disposition. Disposition/Present on Arrival - Present on Arrival Any Indicators Present on Arrival: No History of DVT/PE: No History of Uncontrolled Diabetes: No Urinary Catheter: No History of Decub. Ulcer: No History Surgical Site Infection Following: None - Disposition Have Diagnosis and Disposition been Completed?: Yes Diagnosis: Hypertension Disposition: HOME/ ROUTINE Disposition Time: 06:10 Condition: GOOD Discharge Instructions (ExitCare): High Blood Pressure in Adults Additional Instructions: follow up with pmd Prescriptions: hydrALAZINE [Apresoline] 10 mg PO BID #28 tab Mometasone Furoate [Nasonex] 0.05 mg NS BID #1 inhaler predniSONE [predniSONE Tab] 20 mg PO TID #15 tab hydrOXYzine Pamoate [Vistaril] 25 mg PO QID #12 cap Referrals: Kelly Quiroga MD [Primary Care Provider] - Follow up with primary Forms: [employer] (Kazakh)
[2018-12-29] MEDS ORDERED: DiphenhydrAMINE 50 mg/ml Inj IVP ONE (03:27)
[2018-12-29 03:33] VITALS: RESP 18; TEMP 97.7; BMI 26.4
[2018-12-29 03:50] LABS: BASO # 0.01 K/mm3 (0.0-2.0); BASO % 0.1 % (0.0-3.0); EOS % 0.2 % (1.5-5.0); LYMPH # 2.7 (1.2-3.4); LYMPH % 22.9 % (22.0-35.0); MEAN CELL VOLUME 90.4 fl (80.0-105.0); MEAN CORPUSCULAR HGB CONC 34.3 g/dl (31.0-37.0); MEAN PLATELET VOLUME 8.9 fl (7.0-11.0); MONO # 0.7 (0.1-0.6); MONO % 6.1 % (1.0-6.0); RBC 3.87 10^6/uL (3.5-6.1); RED CELL DISTRIBUTION WIDTH 12.8 % (11.5-14.5); WHITE BLOOD COUNT 11.9 10^3/uL (4.5-11.0)
[2018-12-29 03:59] LABS: ALB/GLOB RATIO 1.3 (1.1-1.8); ALBUMIN 4.3 g/dL (3.0-4.8); ALT/SGPT 17 U/L (7-56); AST/SGOT 41 U/L (14-36); BLOOD UREA NITROGEN 10 mg/dL (7-21); CALCIUM 9.1 mg/dL (8.4-10.5); GFR NON-AFRICAN AMERICAN > 60
[2018-12-29 04:10] LABS: TROPONIN I < 0.01 ng/mL
[2018-12-29] MEDS ORDERED: Potassium Chloride 20 mEq ER Tab PO STA (04:18)
[2018-12-29] MEDS ORDERED: Labetalol 5 mg/ml Inj 20ML IV STA (04:58)
[2018-12-29 05:21] VITALS: BP 147/94; PULSE 89; O2SAT 98
--- NOTE | 2018-12-29 08:24 | CT ---
Date of service: 12/29/2018 PROCEDURE: CT HEAD WITHOUT CONTRAST. HISTORY: solorzano COMPARISON: None available. TECHNIQUE: Axial computed tomography images were obtained through the head/brain without intravenous contrast. Radiation dose: Total exam DLP = 750.87 mGy-cm. This CT exam was performed using one or more of the following dose reduction techniques: Automated exposure control, adjustment of the mA and/or kV according to patient size, and/or use of iterative reconstruction technique. FINDINGS: HEMORRHAGE: No intracranial hemorrhage. BRAIN: Diffuse atrophy with prominence of the ventricles and sulci noted. No mass effect or edema. Intracranial atherosclerosis. Moderate scattered periventricular and subcortical white matter hypodensities, which are nonspecific, but often seen with chronic microvascular ischemic disease. Please note that MRI with diffusion imaging is more sensitive in the detection of acute ischemic event. VENTRICLES: No hydrocephalus. CALVARIUM: 2.2 x 1.1 cm left occipital ossific proliferation/osteoma. PARANASAL SINUSES: Unremarkable as visualized. No significant inflammatory changes. MASTOID AIR CELLS: Unremarkable as visualized. No inflammatory changes. OTHER FINDINGS: None. IMPRESSION: Generalized atrophy. Moderate scattered nonspecific white matter changes. 2.2 x 1.1 cm left occipital ossific proliferation/osteoma. Preliminary impression was provided by [employer].
--- NOTE | 2018-12-29 18:39 | CARD ---
APPROVED REPORT Date of service: 12/29/2018 EKG Measurement Heart [id number] <Conclusion> Normal sinus rhythm Voltage criteria for left ventricular hypertrophy Nonspecific T wave abnormality Abnormal ECG
== END 2018-12-29 06:09 | disposition home or self-care (01) ==
LOC: ED 02:50
DX: I10 Essential (primary) hypertension (principal); K21.9 Gastro-esophageal reflux disease without esophagitis
CPT/HCPCS: 70450; 80053; 84484; 85025; 93005; 96374; 96375; 99285; J0360; J1200; J2765